=== PATIENT | male | born 1960 | race American Indian/Alaskan Native ===

== ENCOUNTER 2019-11-28 10:02 | Outpatient (CLI) | payer OTHER ==
--- NOTE | 2019-11-28 11:38 | Cat Scan Report ---
CT ABDOMEN AND PELVIS WITHOUT CONTRAST HISTORY: Malignant neoplasm prostate. COMPARISON: No relevant comparison imaging. TECHNIQUE: Routine abdominal and pelvic CT exam performed without contrast. Lack of intravenous cont rast limits evaluation of the vascular and solid organs.. All CT scans at this location are performed using CT dose reduction for ALARA by means of automated exposure control. FINDINGS: CT ABDOMEN: Lung Bases: No significant abnormality. Liver: No significant abnormality. Biliary: No significant abnormality. Spleen: No significant abnormality. Unenlarged. Pancreas: No significant abnormality. Adrenals: No significant abnormality. Kidneys: A 1 mm parenchymal calcification in the posterior mid left kidney. No urinary calculus. The renal collecting systems and ureters are nondilated. A prominent left column of Homero. Lymphatics: No lymphadenopathy. Vasculature: No significant abnormality. Bowel/Peritoneum: No significant abnormality. No free air. No free fluid. CT PELVIC: : Normal small urinary bladder. The prostate has an irregular contour and measures 4.9 x 4.0 cm. Lymphatics: No lymphadenopathy. Osseous Structures: No aggressive appearing osseous lesions. Additional Findings: None IMPRESSION: 1. Mild prostate enlargement with abnormal contour of the prostate. 2. No hydronephrosis or hydroureter. 3. No evidence of metastatic disease. Signer Name: Florian Jaimes MD Signed: 11/28/2019 11:33 AM Workstation Name: [id number]
== END 2019-11-28 10:03 | disposition home or self-care (01) ==
LOC: CT 10:02
PROVIDERS: ATTEND Urology
DX: C61 Malignant neoplasm of prostate (principal); N28.89 Other specified disorders of kidney and ureter; N40.0 Benign prostatic hyperplasia without lower urinary tract symptoms
CPT/HCPCS: 74176